=== PATIENT | female | born 1985 | race Hispanic/Latino ===

== ENCOUNTER 2023-02-01 05:47 | Day surgery (SDC) | payer OTHER, SELFPAY ==
[2023-01-31 08:17] VITALS: BMI 23.3
--- NOTE | 2023-02-01 | DI.RAD.S_ITS ---
PROCEDURE: XR LUMBAR SPINE 2-3V INDICATIONS: L5-S1 MICRODISCECTOMY TECHNIQUE: 2 operative views of the lumbar spine were acquired. COMPARISON: None. FINDINGS: 2 operative images of the lumbar spine demonstrate localization of the L5-S1 level with a metallic instrument. IMPRESSION: Operative imaging utilized for location of surgical level. Dictated by: Ganesh Wilson M.D. on 02/01/2023 at 11:20 Approved by: Ganesh Wilson M.D. on 02/01/2023 at 11:22
[2023-02-01 06:43] VITALS: BMI 22.2
[2023-02-01 06:50] VITALS: BP 146/96; PULSE 80; RESP 19; TEMP 36.8; O2SAT 100
[2023-02-01] MEDS: LACTATED RINGERS 1,000 ML 42 ML IV (07:00)
--- NOTE | 2023-02-01 07:44 | PM.PREOP ---
Pre-operative Note COVID-19 COVID-19 status: Not tested Criteria for continued procedure: Expected advancement of disease process, Possibility delay results in more complex future surgery or treatment, Increased loss of function, Continuing or worsening of significant or severe pain, Deterioration of the patient's condition or overall health and Delay expected to result in less-positive ultimate med/surg outcome Interval Note History & Physical reviewed/Exam performed by Physician: Yes Changes to H&P: No
[2023-02-01] MEDS: CEFAZOLIN 2 GM/100 ML PREMIX 100 ML IV (07:55)
[2023-02-01] MEDS: BUPIVACAINE 0.25% (PF) 30 ML, EPINEPHrine 0.3 MG INJ (08:10)
[2023-02-01] MEDS: methylPREDNISolone acet DEPO 40 MG/ML VIAL IM (08:24)
--- NOTE | 2023-02-01 08:34 | P.OP_ITS ---
Operative Date/Time/Diagnoses Date of procedure: 02/01/23 Time of procedure: 07:40 Pre-op diagnosis: 1. L5-S1 disc herniation 2. L5-S1 radiculopathy Post-op diagnosis: same Procedure & Clinicians Procedure: 1. L5-S1 right microdiscectomy 2. Utilization of microsurgical technique and operating microscope Same procedure as scheduled: Yes Indications: Patient has been having back pain and worsening lumbar radiculopathy. Patient failed multiple conservative management with worsening pain weakness and numbness in her lower extremity. Patient has been having difficulty performing activity of daily living. After discussing risks benefits of treatment options, patient elected proceed with surgery. Surgeon: Dawna Cortes Range Technician: Gabriela Marte Click Yes if Unassisted: No Anesthesia Type: General Operative Notes Closure Type: primary Specimen(s): none sent Estimated Blood Loss (mL): 1 Blood products transfused: none Procedure in detail: Patient was seen in the preoperative area. Risks and benefits of the surgery was discussed with the patient. Informed consent was obtained from the patient and placed in the chart. Surgical site was marked. Patient was taken to the operative room. General anesthesia was administered. Prophylactic antibiotic was given to the patient less than 30 min before the incision was made. Patient was placed into a prone position on the Angel table. Patient's back was then prepped and draped in the sterile fashion. Time-out was performed at this time. Using AP and lateral C-arm imaging the interval between L5-S1 was identified and marked on patient's back. A 1 inch incision 1 in from midline was made on the right side. The fascia was incised in line with skin incision. Globus MARS retractors was placed inside the incision and docked onto the L5 lamina. Using microsurgical technique and operating microscope, a L5 laminotomy was performed using a Kerrison rongeur. Liagamentum flavum was resected at the site of the laminotomy. The disc space at L5-S1 was identified. Microdiscectomy was performed by incising the annulus with #11 blade. Microcurettes and pituitary was used to removed herniated disc fragments of disc from the epidural space. After the microdiskectomy was completed, the area medial lateral superior and inferior to the area of the microdiskectomy was inspected and explored using a micro curette. No other impinging structure was identified. The wound was then irrigated with sterile normal saline. 40 mg Depo-Medrol was placed into the epidural space. The deep fascia was closed with 1-0 Vicryl. The subcutaneous tissue was closed with 2-0 Vicryl. The skin was closed with 4-0 Monocryl. Patient tolerated the procedure well. There were no complications. Patient was transferred recovery room in stable condition. Complications: none Post-operative Condition: stable Disposition: PACU Plan for aftercare: Discharge to home
[2023-02-01 08:48] VITALS: BP 134/89; PULSE 97; RESP 16; TEMP 36.1; O2SAT 99
[2023-02-01 08:54] VITALS: BP 151/98; PULSE 89; RESP 12; O2SAT 99
[2023-02-01 09:00] VITALS: BP 144/98; PULSE 82; RESP 14; O2SAT 98
[2023-02-01] MEDS: OXYCODONE IR 5 MG TABLET PO (09:03)
[2023-02-01 09:04] VITALS: BP 148/91; PULSE 80; RESP 16; O2SAT 100
[2023-02-01 09:09] VITALS: BP 138/93; PULSE 73; RESP 16; O2SAT 99
== END 2023-02-01 09:55 | disposition home or self-care (01) ==
PROVIDERS: PCP Physician Assistant; Referring Provider Physical Medicine & Rehabilitation; Visit Provider Orthopaedic Surgery Orthopaedic Surgery of the Spine
PROC: (CPT 63030; principal; 2023-02-01 07:45)
DX: M51.16 Intervertebral disc disorders with radiculopathy, lumbar region (principal); I10 Essential (primary) hypertension; M43.16 Spondylolisthesis, lumbar region
CPT/HCPCS: 63030; 72100; 76000; J0171; J0690; J1030; J1885; J2250; J2405; J2704; J3010

== ENCOUNTER 2024-01-01 11:30 | Inpatient (IN) | payer OTHER, SELFPAY ==
[2023-12-25 12:45] VITALS: BMI 24.8
[2024-01-01] VITALS (17 sets, daily range): BP systolic 109–174; BP diastolic 55–110; PULSE 75–94; RESP 12–19; TEMP 36.1–37.3; O2SAT 95–100; BMI 24.8
[2024-01-01] MEDS: LACTATED RINGERS 1,000 ML 42 ML IV (12:05)
--- NOTE | 2024-01-01 13:14 | PM.PREOP ---
Pre-operative Note Interval Note History & Physical reviewed/Exam performed by Physician: Yes Changes to H&P: No
[2024-01-01] MEDS: CEFAZOLIN 2 GM/100 ML PREMIX 100 ML IV ×2 (13:40→22:03)
--- NOTE | 2024-01-01 14:25 | SUR.OPER ---
Prone on spine table, head in foam head support, padded chest and pelvic supports, gel pad at knees, lower legs supported by pillows; nipples, genitalia and toes free of pressure, arms secured on foam padded arm boards at <90 degrees abduction. Tape over blanket at thigh secured to table.
--- NOTE | 2024-01-01 15:39 | DI.RAD.S_ITS ---
PROCEDURE: XR LUMBAR SPINE 2-3V INDICATIONS: L5-S1 TLIF TECHNIQUE: 2 intraoperative views of the lumbar spine were acquired. COMPARISON: [facility], [place], XR LUMBAR SPINE 2-3V, 02/01/2023, 8:14. FINDINGS: Bones: Intraoperative views during L5-S1 posterior spinal fixation and discectomy. Hardware appears intact. IMPRESSION: Intraoperative views during L5-S1 posterior spinal fixation and discectomy with intact hardware. Dictated by: Govind Whiteside M.D. on 01/01/2024 at 15:54 Approved by: Govind Whiteside M.D. on 01/01/2024 at 15:54
--- NOTE | 2024-01-01 15:53 | PM.OP.1 ---
Operative Date/Time/Diagnoses Date of procedure: 01/01/24 Time of procedure: 13:00 Pre-op diagnosis: 1. L5-S1 spondylolisthesis 2. History of L5-S1 right microdiscectomy with foraminal stenosis Post-op diagnosis: same Procedure & Clinicians Procedure: 1. L5-S1 Postero-lateral and posterior interbody fusion 2. L5-S1 interbody cage placement. 3. L5-S1 decompressive laminectomy with bilateral facetecomies 4. L5-S1 Posterior non-segmental instrumentation 5. [place] of bone marrow from iliac crest 6. Utilization of microsurgical technique and operating microscope Same procedure as scheduled: Yes Indications: Patient has been having chronic back pain and worsening lumbar radiculopathy. Patient had history of L5-S1 microdiskectomy and was doing well until couple months ago. Patient was found to have L5-S1 anterolisthesis with bilateral pars defect with additional workup. Patient failed multiple conservative management with worsening back pain, leg weakness and numbness in her lower extremity. Patient has been having difficulty performing activity of daily living. After discussing risks benefits of treatment options, patient elected proceed with surgery. Surgeon: Dawna Cortes Specialist Field Engineer: Gabriela Marte Click Yes if Unassisted: No Anesthesia Type: General Operative Notes Closure Type: primary Specimen(s): none sent Prosthetic devices, grafts, tissues, transplants, or devices: Globus revolve screws, Rise cage Estimated Blood Loss (mL): 50 Blood products transfused: none Procedure in detail: Patient was seen in the preoperative area. Risks and benefits of the surgery was discussed with the patient. Informed consent was obtained from the patient and placed in the chart. Surgical site was marked. Patient was taken to the operative room. General anesthesia was administered. Prophylactic antibiotic was given to the patient less than 30 min before the incision was made. Patient was placed into a prone position on the Angel table. Patient's back was then prepped and draped in the sterile fashion. Time-out was performed at this time. Using AP and lateral C-arm imaging the interval between L5-S1 was identified and marked on patient's back. A 2 inch incision 2 in from midline was made on the right side first. The fascia was incised in line with skin incision. Globus MARS retractors was placed inside the incision and docked onto the L5 lamina. Using microsurgical technique and operating microscope, a L5 laminectomy and L5-S1 facetectomy was performed using a Kerrison rongeur. Patient was found have right severe lateral recess and neural foramen stenosis which was fully decompressed after the laminectomy facetectomy. Patient was found to have gross instability at L5-S1 level prior to completion of the facetectomy due to her bilateral pars defect. More than 75% of the facets were removed during the process of decompression rendering L5-S1 level grossly unstable and required a fusion procedure at the same time. The laminectomy and facetectomy was performed in order to decompress patient's cauda equina as well as the nerve roots exiting at the L5-S1 level. The disc space at L5-S1 was identified. And a total diskectomy was performed at L5-S1 level. The endplates were decorticated using a rasp and shaver. The total diskectomy and decortication was performed at L5-S1 level in order to to accomplish a L5-S1 fusion. The local bone from the laminectomy and facetectomy was saved for local bone grafting. After the total diskectomy and decortication was completed, Trifecta bone graft material was combined with local bone that was harvested earlier. At this time, a separate skin is incision was made over the iliac crest. A Jamshidi needle was inserted into the iliac crest through a separate skin incision. 5 cc of bone marrow aspiration was obtained through the separate skin incision using a Jamshidi needle from the iliac crest. The bone marrow aspiration was combined with local bone and the DBM bone grafting material. The bone grafting material was placed into the L5-S1 interbody space along with a expandable cage. The cage was expanded to its maximum height using the torque limiting screwdriver. At this time a mirror image incision was made on the left side. The fascia was incised in line with the skin incision. Globus MARS retractor was inserted and docked onto the L5-S1 posterolateral gutter. Using the power drill, posterior-lateral decortication was performed at L5-S1 level until bleeding cortical bone was identified. The remaining bone grafting material was placed into the L5-S1 posterior lateral gutter he order to accomplish posterolateral fusion at the L5-S1 level. Using the double C-arm technique, pedicle screws were placed into the L5-S1 pedicles bilaterally. This was done by placing the Jamshidi needle into the pedicles, then placing the guidewires over the Jamshidi needle, and finally placing the cannulated screws over the guidewires bilaterally. After the pedicle screws were placed, 2 titanium rods was locked into the heads of the pedicle screws using locking caps and torque limiting screwdriver. After all the hardware was placed, and confirmed with AP and lateral C-arm imaging, the wound was then irrigated with sterile normal saline and packed with Ray-Mervat gauze for 3 min to accomplish hemostasis. After the gauze was removed the deep fascia was closed with #1 Vicryl suture. The subcutaneous layer was closed with 2-0 Vicryl. The skin was closed with skin arian. Patient tolerated the procedure well. There were no complications. The Operation could not have been safely performed without compromising the technical result or length of the procedure, without the assistance of a skilled assistant project engineer. The assistant project engineer was medically necessary for proper positioning, retraction and manipulation of instruments, proper exposure, surgical preparation, and manipulation of tissue. Complications: none Post-operative Condition: stable Disposition: PACU Plan for aftercare: Admit to inpatient hospital
[2024-01-01] MEDS: HYDROMORPHONE 1 MG INJ IV ×4 (16:00→16:39)
[2024-01-01] MEDS: hydrOXYzine 50 MG/ML INJ 25 MG IM (16:03)
[2024-01-01] MEDS: methocarbamoL 500 MG TABLET PO (16:15)
[2024-01-01] MEDS: OXYCODONE/ACETAMINOPHEN 5/325 TABLET 1 TAB PO (16:18)
[2024-01-01] MEDS: fentaNYL 100 MCG/2 ML INJ IV (16:36)
[2024-01-01] MEDS: ACETAMINOPHEN 325 MG TABLET 650 MG PO (18:46)
[2024-01-01] MEDS: OXYCODONE IR 10 MG TABLET PO ×2 (18:47→21:57)
[2024-01-01] MEDS: LACTATED RINGERS 1,000 ML 125 ML IV (19:53)
[2024-01-01] MEDS: DOCUSATE 100 MG CAPSULE PO (20:30)
[2024-01-01] MEDS: SENNOSIDES 8.6 MG TABLET 17.2 MG PO (20:31)
[2024-01-02] MEDS: HYDROMORPHONE 0.5 MG INJ IV ×2 (00:26→04:43)
[2024-01-02] MEDS: OXYCODONE IR 10 MG TABLET PO ×6 (03:33→23:52)
[2024-01-02 03:38] VITALS: BP 132/85; PULSE 78; RESP 18; TEMP 36.1; O2SAT 99
[2024-01-02] MEDS: LACTATED RINGERS 1,000 ML 125 ML IV (04:30)
[2024-01-02] MEDS: ACETAMINOPHEN 325 MG TABLET 650 MG PO ×2 (04:41→14:03)
[2024-01-02] MEDS: CEFAZOLIN 2 GM/100 ML PREMIX 100 ML IV (05:37)
--- NOTE | 2024-01-02 07:31 | PM.PNPO.1 ---
Subjective Subjective Interval history: Pt sitting up in chair, waiting for breakfast. Denies nausea, voiding without difficulty. C/o significant pain in low back as well as 'lightning' pain down both legs. Has not worked w/ PT yet. Plan is to go home w/ family members and a significant other who will be alternating in and out of her home to help. Exam Vital Signs (past 8 hours): - 01/01/24 23:54 01/02/24 03:38 Temperature 98.0 F 96.9 F L Pulse Rate 77 78 Respiratory Rate 18 18 Blood Pressure 144/93 H 132/85 Pulse Oximetry 100 99 Oxygen Delivery Method Room Air Oxygen Flow Rate 0 Narrative Exam Narrative: 5/5 strength in hip flexors, quadriceps, hamstrings, DF, PF, EHL in BLE. Sensation to light touch intact throughout BLE, calves soft and compressible. Dressing placed intraoperatively is CDI. [facility] Medical History (Updated 12/25/23 @ 13:17 by Rain Mckinley RN) History of COVID-19 (2022) IUD (intrauterine device) in place Disc displacement, lumbar Radiculopathy, lumbar region HTN (hypertension) Headache, migraine Surgical History (Updated 01/02/24 @ 07:38 by Gabriela Marte PA-C) Hx of microdiscectomy (02/01/23) H/O tubal ligation History of Social History household members: children Smoking Status: Current some day smoker alcohol intake: current Assessment & Plan Post-op Assessment and plan (1) S/P lumbar fusion: Assessment and Plan narrative: 1) Work w/ PT today. 2) Will add dexamethasone to help w/ leg pain. If this is successful, will send home w/ Medrol Jhon. 3) Mechanical VTE prophylaxis w/ SCDs. Pt to have on and functioning at all times when in bed. 4) Pt hoping to go home w/ family tomorrow if adequate progress w/ PT and pain control today. Postoperative Procedures: Procedures Operation Date: 01/01/24 14:15 Actual Procedure Side Surgeon p L5-S1 TRANSFORAMINAL LUMBAR INTERBODY FUSION Not Applicable Dawna Cortes MD Postoperative day: 1
[2024-01-02] MEDS: polyethylene glycoL 3350 17 GM POWD.PACK PO (08:23)
[2024-01-02] MEDS: DEXAMETHASONE 4 MG/ML VIAL IV ×3 (08:23→23:51)
[2024-01-02] MEDS: DOCUSATE 100 MG CAPSULE PO ×2 (08:23→20:17)
[2024-01-02 08:53] VITALS: BP 138/92; PULSE 80; RESP 14; TEMP 37.3; O2SAT 99
--- NOTE | 2024-01-02 09:42 | OT.IP.EVAL ---
Current Diagnoses Spondylolysis, lumbar region (01/01/24) Other intervertebral disc displacement, lumbar region (01/01/24) Arthrodesis status (01/01/24) Surgery Performed Operation Date: 01/01/24 14:15 Actual Procedures p L5-S1 TRANSFORAMINAL LUMBAR INTERBODY FUSION(Not Applicable) - Dawna Cortes MD Past Medical History (Last Updated 12/25/23 @ 13:17 by Rain Mckinley RN) Disc displacement, lumbar Headache, migraine History of COVID-19 (2022) HTN (hypertension) IUD (intrauterine device) in place Radiculopathy, lumbar region Surgical History (Last Updated 12/25/23 @ 13:02 by Rain Mckinley RN) H/O tubal ligation History of Hx of microdiscectomy (02/01/23) Occupational Therapy Inpatient Evaluation/Re-Eval M1 PT/OT-IP Prior Functional Status Start: 01/02/24 11:19 Freq: NEEDED Status: Active Protocol: Document 01/02/24 11:19 CGR (Rec: 01/02/24 11:37 CGR [id number]) Medical Review Prior Functional Status Medical History Reviewed Yes Communication Pt is an effective verbal communicator. [place] is not her first language but her citizen of [place] is more than adequate. Mobility and Gait Pt was IND at baseline but limited by pain. Activities of Daily Living and IADL's Pt was IND at baseline but limited by pain with activities. Social History Household Members children Living Arrangements Apartment/Condo Number of Floors (Floors) One Floor Number of Stairs To Enter/Railing? Pts apt is one level but she has ~20 stairs to get up to her apt. with railing on the L assending. Home Environment Standard Height Toilet,Walk in Shower,Tub/Shower Home Equipment Front Wheel Walker,Hand Held Shower,Grab Bars In Shower Employment Status Unemployed Additional Social History Comment Pt lives with her 11 year old son. She has 2 other older children that live with her ex if she needs further assist. M2 OT-IP Current Condition Start: 01/02/24 11:19 Freq: Status: Active Protocol: Document 01/02/24 11:19 CGR (Rec: 01/02/24 11:37 CGR [id number]) Occupational Therapy Current Condition Current Condition Evaluation Date 01/02/24 Treatment Diagnosis L5-S1 TLIF Diagnosis Onset Date 01/01/24 Post Operative Precautions Lumbar Precautions Log Roll,No Twisting,Limit Bending,Lifting Restriction of 10 lbs,Gait Belt above Incisional Area M3 OT- IP Subjective and Pain Start: 01/02/24 11:19 Freq: Status: Active Protocol: Document 01/02/24 11:19 CGR (Rec: 01/02/24 11:37 CGR [id number]) OT- Subjective Occupational Therapy Visit Type Type Initial Evaluation Visit Start Time 09:02 Visit Stop Time 09:42 Notes Pt is requesting to shower. OT Pain Assessment Pain When Pain Assessed At Rest Pain Present Pain Present Pain Reported Location Lower Back Intensity 6 Scale Used Numeric (0 - 10) Management Techniques Modification of Treatment,Re- positioning M4 OT- IP ADL's Start: 01/02/24 11:19 Freq: Status: Active Protocol: Document 01/02/24 11:19 CGR (Rec: 01/02/24 11:37 CGR [id number]) OT [id number] Comments OT Self-Feeding Comments not meal time OT ADL-Grooming General Evaluation Grooming Ability Standby Assistance Areas Needing Assistance Face Washing Comments OT Grooming Comments in shower OT ADL-Oral Care Comments Oral Care Comments not performed OT ADL-Dressing General Eval Upper Body Dressing Ability Standby Assistance Lower Body Dressing Ability Standby Assistance Areas Needing Assistance Retrieving/Set-up of Clothing, Underpants/Brief,Socks Assistive Devices Dressing Assistive Devices Automatic Die Cutting Machine Operator,Sock Aid Comments OT Dressing Comments Pt educated on LB dressing and was able to perform with use of family life counselor and sock aid. OT ADL-Toileting Comments OT Toileting Comments not performed OT ADL-Bathing Bathing Type Bathing Type Shower General Evaluation Bathing Ability Minimal Assistance Areas Needing Assistance Retrieving/Setting Up Items Devices Bathing Equipment Hand Held Shower Sprayer, Shower Chair with Arms,Grab Bars Comments OT Bathing Comments Pt needed assist with washing her hair in the shower M5 OT- IP IADL's Start: 01/02/24 11:19 Freq: Status: Active Protocol: Document 01/02/24 11:19 CGR (Rec: 01/02/24 11:37 CGR [id number]) OT-Instrumental Activities of Daily Living Deficits IADL Deficits Identified No Deficits Home Safety Awareness Awareness of Need for Assistance at Home Good Awareness Ability to Problem Solve Emergency Able to Problem Solve Situations Medication Management Medication Management No Deficits Identified Money Management Money Management No Deficits Identified Meal Preparation Meal Preparation Caregiver Provides Assist Senior Fund Accountant Senior Fund Accountant Caregiver Provides Assist Driving Driving Comments Pt states understanding that she shouldn't drive while on pain medications. M6 OT- IP Functional Cognition Start: 01/02/24 11:19 Freq: Status: Active Protocol: Document 01/02/24 11:19 CGR (Rec: 01/02/24 11:37 CGR [id number]) Cognitive Factors Limiting Selfcare Function Cognitive Ability Level of Alertness Alert Patient Orientation Name,Age,Birthday,Month,Date, Year,Day of Week,Place, Situation Attention Span Ability Capable of Focused Attention, Capable of Sustained Attention Ability to Follow Commands Able to Follow One Step Commands with Increased Time, Able to Follow One Step Commands with Repetition OT- Vision and Hearing OT- Hearing Assessment OT- Hearing Assessment WFL OT- Vision Assessment Visual Acuity WFL Visual Attentiveness WFL Occular Pursuits WFL Visual Convergence WFL M7 OT- IP Mobility and Balance Start: 01/02/24 11:19 Freq: Status: Active Protocol: Document 01/02/24 11:19 CGR (Rec: 01/02/24 11:37 CGR [id number]) OT- Bed Mobility Assessment Rolling Type of Rolling Log Rolling,Roll to Right Level of Assistance Standby Assistance Supine to Sit Supine to Sit Assist Standby Assistance Scooting Scooting to Edge of Bed Standby Assistance OT-Transfer Assessment Sit to and From Stand Sit to and from Stand Standby Assistance Transfers Transfer Ability Standby Assistance Technique Transfer Destination Bed,Chair,Shower Stall Transfer Technique Stand Step Pivot Devices Transfer Assistive Devices Gait Belt,Front Wheeled Walker Comments Mobility Comments mobility from bed to shower and return to chair OT- Gait Assessment Gait Gait Assistance Required: Standby Assistance Assistive Devices Assistive Device Gait Belt,Front Wheeled Walker Comments Gait Ability Comments mobility around the room OT- Balance Assessment Sitting Balance and Reactions Static Sitting Balance Ability Good Dynamic Sitting Balance Ability Good M8 OT- IP Objective Assessments Start: 01/02/24 11:19 Freq: Status: Active Protocol: Document 01/02/24 11:19 CGR (Rec: 01/02/24 11:37 CGR [id number]) OT Gross Range of Motion Upper Extremity Range of Motion Assessment Within Functional Limits OT Strength Upper Extremity Strength Assessment Within Functional Limits Comments Strength Comments grossly 4+/5 OT- Coordination Assessment Upper Extremity Finger to Nose Test Within Functional Limits Finger Tapping Test Within Functional Limits OT-Muscle Tone Assessment Muscle Tone WNL Yes OT Sensation Assessment Edema Edema Absent M9 OT- IP Assessment and Plan Start: 01/02/24 11:19 Freq: Status: Active Protocol: Document 01/02/24 11:19 CGR (Rec: 01/02/24 11:37 CGR [id number]) OT Summary Assessment and Plan Potential Rehabilitation Potential Excellent Analytic Complexity at Evaluation Low Summary OT Impairments Pain,Balance,Functional Mobility,Grooming,Dressing, Toileting,Bathing,Toilet Transfers,Shower Transfers, Activity Tolerance Progress Towards Goals Progressing Toward Goals Assessment Summary Pt presents as a low complexity evaluation s/p admit for L5-S1 TLIF. Pt is progressing well and requested a shower this AM. Pt has a significant umber of steps to enter her home which is likely her biggest bisi in returning home. Pt educated on LB dressing and home safety. Will continue to follow for 1- 2 days if pt is still admitted . Recommend home with family assist. Goals Grooming Goal Independent Dressing Goal Independent Toileting Goal Independent Bathing Goal Independent Toilet Transfer Goal Independent Shower Transfer Goal Independent Days to Meet Goals 2 Frequency of Treatment Frequency Of Treatment Once a Day Treatment Plan OT Treatment Plan ADL Training,Functional Mobility,Patient/Family Education,Discharge Planning Other Treatment Recommendations and Next review LB dressing and back Treatment Focus precautions. Discharge Recommendations OT Discharge Recommendations Home with Assistance Transportation Needs at Discharge Private Vehicle
--- NOTE | 2024-01-02 09:50 | PT.IIE ---
Current Diagnoses Spondylolysis, lumbar region (01/01/24) Other intervertebral disc displacement, lumbar region (01/01/24) Arthrodesis status (01/01/24) Surgery Performed Operation Date: 01/01/24 14:15 Actual Procedures p L5-S1 TRANSFORAMINAL LUMBAR INTERBODY FUSION(Not Applicable) - Dawna Cortes MD Surgical History (Last Updated 12/25/23 @ 13:02 by Rain Mckinley, RN) H/O tubal ligation History of Hx of microdiscectomy (02/01/23) Medical History (Last Updated 12/25/23 @ 13:17 by Rain Mckinley RN) Disc displacement, lumbar Headache, migraine History of COVID-19 (2022) HTN (hypertension) IUD (intrauterine device) in place Radiculopathy, lumbar region Physical Therapy Inpatient Evaluation/Re-Eval M1 PT/OT-IP Prior Functional Status Start: 01/02/24 11:46 Freq: NEEDED Status: Active Protocol: Document 01/02/24 09:50 AB (Rec: 01/02/24 11:57 AB [id number]) Medical Review Prior Functional Status Medical History Reviewed Yes Communication Pt is an effective verbal communicator. Rwandan is not her first language but her afghan is more than adequate. Mobility and Gait pt stated that she was independent with all mobilities and ambulation withou tAD Activities of Daily Living and IADL's Pt was IND at baseline but limited by pain with activities. Social History Household Members children Living Arrangements Apartment/Condo Number of Floors (Floors) One Floor Number of Stairs To Enter/Railing? Pts apt is one level but she has ~20 stairs to get up to her apt. with railing on the R assending. Home Environment Standard Height Toilet,Walk in Shower,Built-In Shower Seat Home Equipment Front Wheel Walker,Hand Held Shower,Grab Bars In Shower Employment Status Unemployed Additional Social History Comment Pt lives with her 11 year old son. She has 2 other older children that live with her ex if she needs further assist. pt stated that her sister, friend and BF will be available to assist her if needed M2 PT-IP Current Condition Start: 01/02/24 11:46 Freq: NEEDED Status: Active Protocol: Document 01/02/24 09:50 AB (Rec: 01/02/24 11:57 AB [id number]) Physical Therapy Current Condition Current Condition Evaluation Date 01/02/24 Treatment Diagnosis s/p L5S1 TLIF; difficulty in walking Onset Date 01/01/24 M3 PT-IP Subjective Start: 01/02/24 11:46 Freq: NEEDED Status: Active Protocol: Document 01/02/24 09:50 AB (Rec: 01/02/24 11:57 [id number]) Subjective Physical Therapy Visit Type Type Initial Evaluation Visit Start Time 09:50 Visit Stop Time 10:15 Number of PLEAT PATTERNMAKER Visits 25 Physical Therapy Visit Comments Patient Comments agreeable to do PT Therapy Pain Assessment Pain When Pain Assessed At Rest Pain Present Pain Present Pain Reported Location Lower Back Intensity 6 Scale Used Numeric (0 - 10) Pain Behaviors Guarding,Wincing Pain Management Techniques Apply Cold,Distraction, Modification of Treatment,Re- positioning,Timing of Activity with Medications Right Leg Intensity 6 Scale Used Numeric (0 - 10) Pain Management Techniques Distraction,Modification of Treatment,Re-positioning M4 PT-IP Mobility and Gait Start: 01/02/24 11:46 Freq: NEEDED Status: Active Protocol: Document 01/02/24 09:50 AB (Rec: 01/02/24 11:57 [id number]) PT-Bed Mobility Assessment Rolling Type of Rolling Log Rolling Level of Assist Standby Assistance Supine to Sit Supine to Sit Standby Assistance Sit to Supine Sit to Supine Standby Assistance PT-Transfer Assessment Sit to and From Stand Sit to and from Stand Contact Guard Assistance,1 Person Assistance,Use of Upper Extremities Equipment Transfer Assistive Device Gait Belt,Front Wheeled Walker Orthotic/Prosthetic Devices or Brace: No Transfers Transfer Destination Bed,Chair Transfer Technique ambulated Transfer Ability Level of Assist Contact Guard Assistance,1 Person Assistance,Use of Upper Extremities Comments Mobility Comments pt sitting on the chair and just completed OT but agreed to do PT. obtained PLOF and home set up from pt. reviewed back precautions with pt and log roll bed mobility. pt completed sit to stand CGA and ambulated in room using FWW ~ 30 ft CGA and cues for steadiness and safety. pt sat on EOB. completed log roll bed mobility SBA. pt completed sit to stand from EOB CGA and step transfer to bed using fWW CGA. positioned pt on the chair. call light and table placed within reach. informed pt regarding caregiver training and pt contacted her sister to come in at ~ 1pm this afternoon for training. Gait Assessment Gait Gait Assistance Required: Contact Guard Assist Distance (Feet) 30 Able to Maintain Weight Bearing Status Yes During Gait Assistive Devices Assistive Device Gait Belt,Front Wheeled Walker Orthotic/Prosthetic Devices or Brace: No Gait Deviations General Gait Pattern Decreased Stride Length, Decreased Feet Clearance Factors Limiting Gait Function Factors Limiting Gait Function Decreased Activity Tolerance, Decreased Strength,Limited Range of Motion,Pain,Poor Balance,Poor Safety Awareness PT-Balance Assessment Sitting Balance and Reactions Static Sitting Balance Ability Good Dynamic Sitting Balance Ability Good Standing Balance and Reactions Static Standing Balance Ability Fair Dynamic Standing Balance Ability Fair Device Used FWW M5 PT-IP Objective Assessments Start: 01/02/24 11:46 Freq: NEEDED Status: Active Protocol: Document 01/02/24 09:50 AB (Rec: 01/02/24 11:57 AB [id number]) Orientation Orientation/Cognition Level of Alertness Alert Orientation Name,Age,Place,Situation Language Function Ability No Deficits Noted Safety Awareness Understands Safety Issues Memory Description No Deficits Noted Gross Range of Motion Lower Extremity ROM Assessment Within Functional Limits Strength Lower Extremity Strength Assessment Left Impaired Hip 3+/5 Knee 4-/5 Coordination Assessment Gross Coordination Gross Coordination WNL Sensation Assessment Sensation Gross Sensation WNL Muscle Tone Muscle Tone WNL Yes M6 PT-IP Treatment Start: 01/02/24 11:46 Freq: NEEDED Status: Active Protocol: Document 01/02/24 09:50 AB (Rec: 01/02/24 11:57 AB [id number]) Physical Therapy Treatment Education Education Provided Precautions,Weight Bearing Status,Safety M7 PT-IP Assessment and Plan Start: 01/02/24 11:46 Freq: NEEDED Status: Active Protocol: Document 01/02/24 09:50 AB (Rec: 01/02/24 11:57 AB [id number]) PT Summary Assessment and Plan Potential Rehabilitation Potential Good Status of Condition at Evaluation Evolving Summary Impairments Pain,ROM,Strength,Balance, Coordination,Sensation,Tone, Cognition,Bed Mobility, Transfers,Gait,Activity Tolerance Assessment Summary pt is a 38 y/o F s/p L5S1 TLIF POD 1. pt requiring CGA with mobility using FWW and plans to go home with family to assist her. caregiver training set up for this afternoon ~ 1pm. will also conduct stair climbing training . pt has 20 steps with R rail ascending to enter her apartment. will continue to assess progress. Goals Bed Mobility Goal Independent Transfer Goal Independent,Front Wheeled Walker Gait Goal Independent,Front Wheel Walker Gait Distance 250 Other Goals up/down 20 steps R rail ascending SBA Days to Meet Goals 5 Frequency of Treatment Frequency Of Treatment Twice a Day Treatment Plan Physical Therapy Treatment Plan Bed Mobility Training,Transfer Training,Gait Training, Therapeutic Exercise,Balance Retraining,Post Op Education, Discharge Planning,Hot or Cold Pack,Neuromuscular Re-ed, Coordination Retraining,Manual Therapy Other Recommendations and Next Treatment caregiver training 01/02/24 @ 1 Focus pm Precautions Lumbar Precautions Log Roll,No Twisting,Limit Bending,Lifting Restriction of 10 lbs,Gait Belt above Incisional Area Recommendations To Nursing Amount of Assist Needed 1 Person Assist Discharge Recommendations PT Discharge Recommendations Home with Assistance Transportation Needs at Discharge Private Vehicle
[2024-01-02 12:00] VITALS: BP 158/90; PULSE 80; RESP 20; TEMP 37.3; O2SAT 100
--- NOTE | 2024-01-02 13:01 | PT.IPTN ---
Current Diagnoses Spondylolysis, lumbar region (01/01/24) Other intervertebral disc displacement, lumbar region (01/01/24) Arthrodesis status (01/01/24) Surgery Performed Operation Date: 01/01/24 14:15 Actual Procedures p L5-S1 TRANSFORAMINAL LUMBAR INTERBODY FUSION(Not Applicable) - Dawna Cortes MD Physical Therapy Treatment Note M2 PT-IP Current Condition Start: 01/02/24 11:46 Freq: NEEDED Status: Active Protocol: Document 01/02/24 09:50 AB (Rec: 01/02/24 11:57 AB [id number]) Physical Therapy Current Condition Current Condition Evaluation Date 01/02/24 Treatment Diagnosis s/p L5S1 TLIF; difficulty in walking Onset Date 01/01/24 M3 PT-IP Subjective Start: 01/02/24 11:46 Freq: NEEDED Status: Active Protocol: Document 01/02/24 13:29 TS (Rec: 01/02/24 13:46 TS [id number]) Subjective Physical Therapy Visit Type Type Treatment Note Visit Start Time 13:01 Visit Stop Time 13:24 Notes Sister in room Number of GRINDING MACHINE TENDER Visits 23 Physical Therapy Visit Comments Patient Comments Pt found resting in bed, reports pain is a little better this afternoon and is not having pain in her RLE. Pt is agreeable to PT. Therapy Pain Assessment Pain When Pain Assessed At Rest Pain Present Pain Present Pain Reported Location Lower Back Pain Behaviors Guarding,Wincing Pain Management Techniques Apply Cold,Distraction, Modification of Treatment,Re- positioning,Timing of Activity with Medications M4 PT-IP Mobility and Gait Start: 01/02/24 11:46 Freq: NEEDED Status: Active Protocol: Document 01/02/24 13:29 TS (Rec: 01/02/24 13:46 TS [id number]) PT-Bed Mobility Assessment Rolling Type of Rolling Log Rolling,Roll to Right Level of Assist Standby Assistance Supine to Sit Supine to Sit Standby Assistance Sit to Supine Sit to Supine Standby Assistance PT-Transfer Assessment Sit to and From Stand Sit to and from Stand Standby Assistance Equipment Transfer Assistive Device Gait Belt,Front Wheeled Walker Orthotic/Prosthetic Devices or Brace: No Comments Mobility Comments Logroll to R side SBA with HOB elevated and use of rails. Supine to sit SBA, pt did not require cues for sequencing. STS from bed SBA with FWW. Sister instructed in donning of gait belt. She ambulated ~ 100'SBA with FWW. She performed stairs x6 with CGA from sister and use of single rail and FINE ARTS CHAIR, cues were provided for sequencing. She ambulated back to room, sit to supine SBA with logroll. She recalled 3/3 spinal precautions. Pt was left in bed, all needs met. Gait Assessment Gait Gait Assistance Required: Standby Assistance Distance (Feet) 100 Able to Maintain Weight Bearing Status Yes During Gait Assistive Devices Assistive Device Gait Belt,Front Wheeled Walker Orthotic/Prosthetic Devices or Brace: No Gait Deviations General Gait Pattern Decreased Stride Length, Decreased Feet Clearance Factors Limiting Gait Function Factors Limiting Gait Function Decreased Activity Tolerance, Decreased Strength,Limited Range of Motion,Pain,Poor Balance Comments Gait Comments See mobility comments Stair Climbing Assessment Evaluation Level of Assist On Stairs Contact Guard Assistance Devices Stair Climbing Assistive Devices Right Railing Technique/Endurance Stair Climbing Direction Ascend and Descend Stair Climbing Technique Step to Step Number of Steps Climbed 6 PT-Balance Assessment Sitting Balance and Reactions Static Sitting Balance Ability Good Dynamic Sitting Balance Ability Good Standing Balance and Reactions Static Standing Balance Ability Good Dynamic Standing Balance Ability Fair Device Used FWW M5 PT-IP Objective Assessments Start: 01/02/24 11:46 Freq: NEEDED Status: Active Protocol: Document 01/02/24 09:50 AB (Rec: 01/02/24 11:57 AB [id number]) Orientation Orientation/Cognition Level of Alertness Alert Orientation Name,Age,Place,Situation Language Function Ability No Deficits Noted Safety Awareness Understands Safety Issues Memory Description No Deficits Noted Gross Range of Motion Lower Extremity ROM Assessment Within Functional Limits Strength Lower Extremity Strength Assessment Left Impaired Hip 3+/5 Knee 4-/5 Coordination Assessment Gross Coordination Gross Coordination WNL Sensation Assessment Sensation Gross Sensation WNL Muscle Tone Muscle Tone WNL Yes M6 PT-IP Treatment Start: 01/02/24 11:46 Freq: NEEDED Status: Active Protocol: Document 01/02/24 13:29 TS (Rec: 01/02/24 13:46 TS [id number]) Physical Therapy Treatment Education Education Provided Precautions,Weight Bearing Status,Safety M7 PT-IP Assessment and Plan Start: 01/02/24 11:46 Freq: NEEDED Status: Active Protocol: Document 01/02/24 13:29 TS (Rec: 03/26/24 13:46 TS [id number]) PT Summary Assessment and Plan Potential Rehabilitation Potential Good Summary Impairments Pain,ROM,Strength,Balance, Coordination,Sensation,Tone, Cognition,Bed Mobility, Transfers,Gait,Activity Tolerance Progress Towards Goals Progressing Toward Goals Assessment Summary Laurence is making good progress with her mobility. She is SBA for all bed mobility and demonstrates good awareness of her precautions. She progressed her gait to ~100' SBA with FWW, had no buckling or LOB. She performed steps x6 CGA with single rail and FINE ARTS CHAIR from sister. Sister was instructed in and performed gait, stair and gait belt training. PT is recommending home with assist. Goals Bed Mobility Goal Independent Transfer Goal Independent,Front Wheeled Walker Gait Goal Independent,Front Wheel Walker Gait Distance 250 Other Goals up/down 20 steps R rail ascending SBA Days to Meet Goals 5 Frequency of Treatment Frequency Of Treatment Twice a Day Treatment Plan Physical Therapy Treatment Plan Bed Mobility Training,Transfer Training,Gait Training, Therapeutic Exercise,Balance Retraining,Post Op Education, Discharge Planning,Hot or Cold Pack,Neuromuscular Re-ed, Coordination Retraining,Manual Therapy Precautions Lumbar Precautions Log Roll,No Twisting,Limit Bending,Lifting Restriction of 10 lbs,Gait Belt above Incisional Area Recommendations To Nursing Amount of Assist Needed Standby Assistance Discharge Recommendations PT Discharge Recommendations Home with Assistance Transportation Needs at Discharge Private Vehicle
--- NOTE | 2024-01-02 14:00 | CM.DANOTE ---
DCP Assessment Note Pt is a 38yo F here following TLIF with Dr Cortes on 01.01.24. PCP Althea Saldivar [employer] and self pay ASSOCIATE SPA DIRECTOR reviewed EMR. Per PT/OT, cleared for home with assistance. Per RN, supportive sister at bedside. Per chart review, pt has rotating family plan at home to assist upon dc. Per ortho PA note, anticipate home today vs tomorrow pending pain/ability to mobilize. Pt had significant pain overnight. ASSOCIATE SPA DIRECTOR met with pt and sister Divina ([phone]) in room. Pt resting in bed. Pt reports no CM DCP needs. Worried about being in pain again overnight and wishes to stay another night. Pt reported 7-8 pain on ambulation with PT/OT. Sister reports having all the equip/ability to support at home between her and other family, but would also like pt to stay another night if possible. ASSOCIATE SPA DIRECTOR encouraged pt and sister to speak with ortho PA about concerns. Plan: Anticipate dc home tomorrow with family support. No barriers identified to safe dc home with family support. CM team will continue to follow as needed for any DCP needs that arise. GAVI Shahid Discharge Planning/Care Management CM Discharge Assessment Start: 01/02/24 13:56 Freq: Status: Active Protocol: Document 01/02/24 13:56 (Rec: 01/02/24 14:00 [id number]) Discharge Planning Assessment Assigned Inspector Brake Lining GAVI Townsend DPOA/Assigned Designee Name Rudi, partner Contact Information [phone] Advance Directives? No History Provided By Patient,Family Member Prior Living Arrangements Apartment/Condo Household Members children Type of transporation used prior to Drives own vehicle admit Independent with ADL's Yes Is patient alert and oriented? Yes DME Already Rented / Owned FWW / Walker,Other Barriers to Discharge No Discharge Plan Home Transportation Arrangement family in POV Referrals Initiated None needed Whiteboard Updated in Patient Room with Yes name and ext. # of Inspector Brake Lining Review Status In Process Next Review Type Continued Stay Review Pre-Anesthesia Assessment Start: 12/25/23 12:45 Freq: Status: Active Protocol: Document 12/25/23 12:45 CAB (Rec: 12/25/23 13:28 CAB [id number]) Pre-Anesthesia Assessment Patient Information Reviewed Via Phone Assessment Assessment Completed With Patient,Icu Manager Comment Language exchange [phone] Diagnostic Results CBC Comment Outside labs scanned Primary Care Provider Althea Saldivar Seen Specialist in Last 12 Months Yes Specialist Seen Orthopedist Primary Language Bahamian Preferred Language Fleet Coordinator Required No Height 167.64 cm Weight 69.853 kg Body Mass Index (BMI) 24.8 Hearing Ability Normal Visual Impairment No Limitations Visual Assist None Dentition Type Teeth, Natural Present,Teeth, Missing Barriers to Learning Language Hx Anesthesia Reactions No Hx Family Anesthesia Reaction No Hx Malignant Hyperthermia No Hx Blood Transfusions No Hx Blood Transfusion Reaction No Anesthesia Review Requested No Roll Plugger Machine Operator No alcohol intake current alcohol intake frequency a few times a week Smoking Status Current some day smoker Tobacco type smokeless tobacco Substance Use Type does not use Pain Present Pain Reported Musculoskeletal Symptoms Back Pain Patient is completely paralyzed or No completely immobile Mental Status Oriented to own ability Is patient on oxygen? No Does patient have VELAQZUEZ/SOB No Hx Sleep Apnea No CPAP/BIPAP use not prescribed Currently Taking a Beta Ant No Hx Chest Pain No Hx SOB No Hx Syncope or Dizziness No Anti-Coagulant Therapy No Has a Senior Climate Advisor No Cardiac Testing No Hx Pacemaker/ICD No Pacemaker Rep Required? No Cardiac Clearance Received Not Applicable Diet Type At Home Regular Dysphagia No Urinary Catheter Present No Hx Urinary Self Catheterization No Diabetes No Patient No Lactating No Hx Drug Resistant Organism No Presence of External or Internal Medical Yes: IUD Devices Received a COVID vaccine? Yes Marital Status Lives With children Current Living Arrangements Apartment/Condo Support System Sibling(s) Does the Patient Have Assistance After Sister will stay w/pt to Surgery assist with care at [place] Patient Discharge Plan Description Return Home Comment Pt advised overnight length of stay per surgeon Feels Safe in Current Environment Yes Been Physically Hurt or Threatened By a No Person in Current Environment Do you have thoughts of harming yourself None or others? Are you currently considering suicide? No Do you have a plan to hurt yourself or No Plan others? Do You Have Any Spiritual Beliefs That No May Affect Your HC Choices? Do You Have Any Cultural Practices That No May Affect Your HC Choices? Who Can We Speak to About Patient's Care Family, friends Identifying Code for Release of Patient Declines to issue Information Health Care Proxy/Next of Kin Divina (sister) Health Care Proxy Emergency Contact Name Divina (sister) Emergency Contact Advance Directives? No Power of Housing Case Manager No PAC Instructions Durable medical equipment, Medications to take/avoid, Nasal antibiotic,No ETOH/ petroleum product on skin DOS, NPO,Pre-surgical wash,Sensory aids,Sturdy shoes/comfortable clothes,Do not bring valuables and remove jewelry
[2024-01-02 17:01] VITALS: BP 125/87; PULSE 77; RESP 16; TEMP 37.2; O2SAT 99
[2024-01-02] MEDS: SENNOSIDES 8.6 MG TABLET 17.2 MG PO (20:17)
[2024-01-02 20:52] VITALS: BP 132/84; PULSE 75; RESP 18; TEMP 36.4; O2SAT 99
[2024-01-03 00:35] VITALS: BP 128/86; PULSE 76; RESP 18; TEMP 36.6; O2SAT 99
[2024-01-03] MEDS: HYDROMORPHONE 0.5 MG INJ IV (02:21)
[2024-01-03 05:43] VITALS: BP 135/85; PULSE 71; RESP 18; TEMP 36.1; O2SAT 99
[2024-01-03] MEDS: DEXAMETHASONE 4 MG/ML VIAL IV ×2 (06:12→11:33)
--- NOTE | 2024-01-03 07:20 | PM.DS.1 ---
History of Present Illness History of Present Illness Chief complaint: INPT Narrative: Laurence is a pleasant 38-year-old female who is POD#2 s/p L5-S1 Postero-lateral and posterior interbody fusion with interbody cage placement. She reports overall she is doing well. Pain has improved since yesterday she is now only having pain down her left leg versus bilateral legs yesterday. She feels that the steroid she received yesterday significantly improved her pain. She states she has been able to move and get out of bed as well as urinate on her own. Has support from family and SO at home and feels comfortable with discharge to home with them today. Denies fever, chills, chest pain, shortness of breath, nausea, vomiting. Operative Date/Time/Diagnoses Date of procedure: 01/01/24 Time of procedure: 13:00 Pre-op diagnosis: 1. L5-S1 spondylolisthesis 2. History of L5-S1 right microdiscectomy with foraminal stenosis Post-op diagnosis: same Procedure & Clinicians Procedure: 1. L5-S1 Postero-lateral and posterior interbody fusion 2. L5-S1 interbody cage placement. 3. L5-S1 decompressive laminectomy with bilateral facetecomies 4. L5-S1 Posterior non-segmental instrumentation 5. Mathis of bone marrow from iliac crest 6. Utilization of microsurgical technique and operating microscope Same procedure as scheduled: Yes Indications: Patient has been having chronic back pain and worsening lumbar radiculopathy. Patient had history of L5-S1 microdiskectomy and was doing well until couple months ago. Patient was found to have L5-S1 anterolisthesis with bilateral pars defect with additional workup. Patient failed multiple conservative management with worsening back pain, leg weakness and numbness in her lower extremity. Patient has been having difficulty performing activity of daily living. After discussing risks benefits of treatment options, patient elected proceed with surgery. Surgeon: Dawna Cortes Customer Service Agent: Gabriela Marte Click Yes if Unassisted: No Anesthesia Type: General Discharge Providers Provider Date of admission: 01/01/24 11:30 Discharge Date: 01/03/24 Primary care physician: Althea Saldivar PA-C Consults: 01/01/24 17:13 Consult to Occupational Therapy Evaluate & Treat Comment: Physician Instructions: Evaluate and treat Consult to Physical Therapy Evaluate & Treat Comment: Physician Instructions: Evaluate and Treat 01/01/24 17:48 Consult to ENVIRONMENTAL PROJECT MANAGER - Channeler Outsole Routine Comment: has L&I from injury but states is not providing en Discharge provider: Malissa Salgado PA-C Summary Hospital Course Discharge Diagnosis: Stable status post L5-S1 Postero-lateral and posterior interbody fusion with interbody cage placement. Hospital Course: Uncomplicated hospital course. Exam Vital Signs (past 8 hours): - 01/03/24 00:35 01/03/24 05:43 Temperature 97.9 F 97 F L Pulse Rate 76 71 Respiratory Rate 18 18 Blood Pressure 128/86 135/85 Pulse Oximetry 99 99 Oxygen Flow Rate 0 0 Oxygen Delivery Method Room Air Oxygen Flow Rate 0 Narrative Exam Narrative: Lying in bed comfortably during interview today with SCDs in place and functioning. Resp Effort & Inspection: normal respiratory effort and able to speak in complete sentences Cardio Rate: regular rate Other: Brisk capillary refill, pulses intact. Back/Spine/Pelvis Other: Clean, dry, intact postsurgical dressings over the lumbar spine. Neuro General: patient alert, patient awake and patient oriented x3 Extrem Other: 4/5 strength wtih PF left side, 5/5 strength wtih PF right side. 5/5 strength with DF, EHL hip flexion, knee flexion and extension bilaterally. Wiggles all toes equally. Calves soft and nontender bilaterally Sensation intact throughout bilateral lower extremities. Psych Appearance: grossly normal Mental Status: mental status grossly normal Speech and Movement: speech and movement normal [facility] Medical History (Updated 12/25/23 @ 13:17 by Rain Mckinley RN) History of COVID-19 (2022) IUD (intrauterine device) in place Disc displacement, lumbar Radiculopathy, lumbar region HTN (hypertension) Headache, migraine Surgical History (Updated 01/02/24 @ 07:38 by Gabriela Marte PA-C) Hx of microdiscectomy (02/01/23) H/O tubal ligation History of Social History household members: children Smoking Status: Current some day smoker alcohol intake: current Discharge Assessment & Plan Assessment and Plan Assessment: Stable s/p L5-S1 Postero-lateral and posterior interbody fusion with interbody cage placement. Plan of Treatment: Plan to discharge to home today with family. 1) Keep dressing intact, clean and dry until 2 week post-op appointment. No soaking the incision site in pools or tubs. No topical ointments or creams to the incision site. 2) postoperative medications including medrol elaine, oxycodone and APAP were sent into patients retail pharmacy today. Continue mechanical DVT prophylaxis. Heat to the back as needed for muscle spasms. 3) Maintain postoperative activity restrictions including no deep bending, twisting, lifting more than 10 lbs for 6 weeks. 4) Follow up at [facility] as scheduled in 2 weeks. All patient's questions were answered and she is in agreement with plan. Call our office with any questions or concerns. Discharge Plan Discharge Plan Patient Disposition: Home Discharge orders & Medications Prescriptions: New docusate sodium 100 mg Capsule 100 mg PO BID PRN (Reason: constipation) Qty: 30 0RF acetaminophen 325 mg Tablet 650 mg PO Q6H PRN (Reason: Fever/Mild Pain (1-3)) Qty: 120 0RF ondansetron 4 mg Tablet,Disintegrating 4 mg sublingual Q4HR PRN (Reason: Nausea) Qty: 10 0RF oxycodone 5 mg tablet 5 mg PO Q6H PRN (Reason: pain (scale score 7-10)) Qty: 30 0RF methylprednisolone [Methylpred DP] 4 mg tablets,dose pack See Rx Instructions .ROUTE .COMPLEX Qty: 21 0RF Rx Instructions: orally per package directions Medication counseling provided by Pharmacist: Yes Follow up/Referrals: Dawna Cortes MD [Physician] - 01/19/24 9:30 am (Follow up w/ Jose Juan Caputo PA-C, at [facility] office in [place].) Althea Saldivar PA-C [Primary Care Provider] - Diet/Activity/Treatments Diet: Diet as Tolerated Activity: No deep bending or twisting at the waist. No lifting more than 10 pounds for 6 weeks. Cold/Heat Therapy: Heating pad to low back as needed for pain. Skin/Wound/Dressing Care Report to your healthcare provider any signs of infection, such as:: chills, fever, night sweats, unusual drainage and unusual redness Dressing: May shower. Keep dressing as dry as possible. If dressing becomes wet or dirty, may remove and replace with clean, dry gauze. No bathing or otherwise soaking incisions. Do not apply any creams, lotions, or ointments to incisions. Visit Report/Discharge Packet Instructions: DI for Prescription Opioid Use, DI for Transforaminal Lumbar Interbody Fusion Stand Alone Forms: Patient Portal/API, Stroke Signs & Symptoms Discharge Data Primary Care Provider: Althea Saldivar
[2024-01-03] MEDS: ACETAMINOPHEN 325 MG TABLET 650 MG PO (07:33)
[2024-01-03] MEDS: OXYCODONE IR 10 MG TABLET PO ×3 (07:33→13:51)
[2024-01-03 08:00] VITALS: BP 139/98; PULSE 72; RESP 16; TEMP 36.9; O2SAT 98
[2024-01-03] MEDS: DOCUSATE 100 MG CAPSULE PO (08:30)
--- NOTE | 2024-01-03 09:02 | PT.IPTN ---
Current Diagnoses Spondylolysis, lumbar region (01/01/24) Other intervertebral disc displacement, lumbar region (01/01/24) Arthrodesis status (01/01/24) Surgery Performed Operation Date: 01/01/24 14:15 Actual Procedures p L5-S1 TRANSFORAMINAL LUMBAR INTERBODY FUSION(Not Applicable) - Dawna Cortes MD Physical Therapy Treatment Note M2 PT-IP Current Condition Start: 01/02/24 11:46 Freq: NEEDED Status: Active Protocol: Document 01/02/24 09:50 AB (Rec: 01/02/24 11:57 AB [id number]) Physical Therapy Current Condition Current Condition Evaluation Date 01/02/24 Treatment Diagnosis s/p L5S1 TLIF; difficulty in walking Onset Date 01/01/24 M3 PT-IP Subjective Start: 01/02/24 11:46 Freq: NEEDED Status: Active Protocol: Document 01/03/24 09:25 TS (Rec: 01/03/24 09:34 TS [id number]) Subjective Physical Therapy Visit Type Type Treatment Note Visit Start Time 09:02 Visit Stop Time 09:25 Number of BIOLOGY INTERN Visits 20 Physical Therapy Visit Comments Patient Comments Pt found resting in bed, reports pain has shifted to her L leg, pt is agreeable to PT. Therapy Pain Assessment Pain When Pain Assessed At Rest Pain Present Pain Present Pain Reported Location Lower Back Pain Behaviors Guarding,Wincing Pain Management Techniques Apply Cold,Distraction, Modification of Treatment,Re- positioning,Timing of Activity with Medications M4 PT-IP Mobility and Gait Start: 01/02/24 11:46 Freq: NEEDED Status: Active Protocol: Document 01/03/24 09:25 TS (Rec: 01/03/24 09:34 TS [id number]) PT-Bed Mobility Assessment Rolling Type of Rolling Log Rolling,Roll to Right Level of Assist Standby Assistance Supine to Sit Supine to Sit Standby Assistance Sit to Supine Sit to Supine Standby Assistance Scooting Scooting to Edge of Bed Standby Assistance PT-Transfer Assessment Sit to and From Stand Sit to and from Stand Standby Assistance Equipment Transfer Assistive Device Gait Belt,Front Wheeled Walker Orthotic/Prosthetic Devices or Brace: No Comments Mobility Comments Logroll to R side SBA, pt demonstrates good carryover. Supine to sit SBA with BUE support. She ambulated ~250' SBA with FWW with emerging step thru gait. She performed steps x3 with single rail and BUILDINGS AND GROUNDS SUPERINTENDENT CGA, had no buckling or LOB. Pt ambulated back to room , was left in chair, all needs met. Gait Assessment Gait Gait Assistance Required: Standby Assistance Distance (Feet) 250 Able to Maintain Weight Bearing Status Yes During Gait Assistive Devices Assistive Device Gait Belt,Front Wheeled Walker Orthotic/Prosthetic Devices or Brace: No Gait Deviations General Gait Pattern Decreased Stride Length, Decreased Feet Clearance Factors Limiting Gait Function Factors Limiting Gait Function Decreased Activity Tolerance, Decreased Strength,Limited Range of Motion,Pain,Poor Balance Comments Gait Comments See mobility comments Stair Climbing Assessment Evaluation Level of Assist On Stairs Contact Guard Assistance Devices Stair Climbing Assistive Devices Right Railing Technique/Endurance Stair Climbing Direction Ascend and Descend Stair Climbing Technique Step to Step Number of Steps Climbed 3 PT-Balance Assessment Sitting Balance and Reactions Static Sitting Balance Ability Good Dynamic Sitting Balance Ability Good Standing Balance and Reactions Static Standing Balance Ability Good Dynamic Standing Balance Ability Fair Device Used FWW M5 PT-IP Objective Assessments Start: 01/02/24 11:46 Freq: NEEDED Status: Active Protocol: Document 01/02/24 09:50 AB (Rec: 01/02/24 11:57 AB [id number]) Orientation Orientation/Cognition Level of Alertness Alert Orientation Name,Age,Place,Situation Language Function Ability No Deficits Noted Safety Awareness Understands Safety Issues Memory Description No Deficits Noted Gross Range of Motion Lower Extremity ROM Assessment Within Functional Limits Strength Lower Extremity Strength Assessment Left Impaired Hip 3+/5 Knee 4-/5 Coordination Assessment Gross Coordination Gross Coordination WNL Sensation Assessment Sensation Gross Sensation WNL Muscle Tone Muscle Tone WNL Yes M6 PT-IP Treatment Start: 01/02/24 11:46 Freq: NEEDED Status: Active Protocol: Document 01/03/24 09:25 TS (Rec: 01/03/24 09:34 TS [id number]) Physical Therapy Treatment Education Education Provided Precautions,Weight Bearing Status,Safety M7 PT-IP Assessment and Plan Start: 01/02/24 11:46 Freq: NEEDED Status: Active Protocol: Document 01/03/24 09:25 TS (Rec: 01/03/24 09:34 TS [id number]) PT Summary Assessment and Plan Potential Rehabilitation Potential Good Summary Impairments Pain,ROM,Strength,Balance, Coordination,Sensation,Tone, Cognition,Bed Mobility, Transfers,Gait,Activity Tolerance Progress Towards Goals Progressing Toward Goals Assessment Summary Laurence continues to do well with her mobility. She is SBA for all bed mobility and demonstrates good carryover of sequencing. She progressed her gait ~250'SBA with FWW. She performed steps x3 with single rail and BUILDINGS AND GROUNDS SUPERINTENDENT. She demonstrates good awareness of her spinal precautions during mobility. PT is recommending pt return home with assist from sister. Goals Bed Mobility Goal Independent Transfer Goal Independent,Front Wheeled Walker Gait Goal Independent,Front Wheel Walker Gait Distance 250 Other Goals up/down 20 steps R rail ascending SBA Days to Meet Goals 5 Frequency of Treatment Frequency Of Treatment Twice a Day Treatment Plan Physical Therapy Treatment Plan Bed Mobility Training,Transfer Training,Gait Training, Therapeutic Exercise,Balance Retraining,Post Op Education, Discharge Planning,Hot or Cold Pack,Neuromuscular Re-ed, Coordination Retraining,Manual Therapy Precautions Lumbar Precautions Log Roll,No Twisting,Limit Bending,Lifting Restriction of 10 lbs,Gait Belt above Incisional Area Recommendations To Nursing Amount of Assist Needed Standby Assistance Discharge Recommendations PT Discharge Recommendations Home with Assistance Transportation Needs at Discharge Private Vehicle
--- NOTE | 2024-01-03 09:09 | CM.DPNOTE ---
DCP Note AUTOMOTIVE SERVICE ADVISOR reviewed EMR. Per ortho PA, pt to dc home with family support today. AUTOMOTIVE SERVICE ADVISOR met with pt in room. Report much less pain today. Plan to dc home with sister after another round of therapies. Report no CM needs. Plan: dc home today with family support. No identified barriers to safe dc home. CM team will continue to follow as needed. Sujata Wright, GAVI
[2024-01-03 12:00] VITALS: BP 129/83; PULSE 76; RESP 16; TEMP 36.9; O2SAT 98
--- NOTE | 2024-01-03 14:39 | PC.NURSE ---
Patient is A&OX4, VSS, afebrile on RA. She is able to ambulate with SBA to BR using FWW. She reports pain to back and LLE (thigh) 7-8/10 well controlled with prn 10 mg oxycodone, prn tylenol and scheduled steroid this a.m. She is able to amulbate around the nursing unit with PT and is cleared medically and per PT for discharge. She verbalizes understanding of discharge medications, as explained with pharmacist at bedside. She acknowledges understanding of spinal precautions and activity limitations as well as follow up appointment postoperatively. She is escorted by w/ch with REHABILITATION COUNSELLOR for discharge home with brother in law this afternoon after lunch at approximately 1356 this afternoon.
== END 2024-01-03 13:56 | disposition home or self-care (01) | DRG 304 ==
PROVIDERS: Admitting Provider Orthopaedic Surgery Orthopaedic Surgery of the Spine; PCP Physician Assistant; Referring Provider Orthopaedic Surgery Orthopaedic Surgery of the Spine; Visit Provider Orthopaedic Surgery Orthopaedic Surgery of the Spine
PROC: 0SG30AJ Fusion of Lumbosacral Joint with Interbody Fusion Device, Posterior Approach, Anterior Column, Open Approach (ICD-10-PCS; principal; 2024-01-01 14:15)
DX: M43.17 Spondylolisthesis, lumbosacral region (principal); M51.26 Other intervertebral disc displacement, lumbar region; M54.16 Radiculopathy, lumbar region
CPT/HCPCS: 72100; 76000; 97116; 97162; 97165; 97530; 97535; C1713; J0330; J0690; J1100; J1170; J2250; J2405; J2704; J3010; J3410